=== PATIENT | female | born 1970 | race Caucasian/White ===

== ENCOUNTER → 2016-12-26 | Outpatient (CLI) | payer BC ==
[~2016-12-26] MED LIST: CHOL100010 PO; FLX10 PO; HYDR0.5T PO; LEVE500T26 PO; LIOT1TAB10 PO; LOSA1TAB38 PO; PANT40TA PO; SPIR25TA PO; SYN150 PO; TRAZ100T29 PO; ZCRT/40 PO
--- NOTE | 2016-12-26 14:24 | MAMMOGRAPHY REPORT ---
BILATERAL DIGITAL SCREENING MAMMOGRAM TOMOSYNTHESIS WITH CAD: 12/26/2016 CLINICAL HISTORY: Routine screening. The patient reported to the technologist that she has bilateral breast tenderness for 5 months. TECHNIQUE: Breast tomosynthesis in addition to standard 2D mammography was performed. Current study was also evaluated with a Computer Aided Detection (CAD) system. COMPARISON: Comparison is made to exams dated: 12/26/2015 mammogram, 12/22/2014 mammogram, 08/16/2013 ma mmogram, 07/29/2012 mammogram, 07/15/2011 mammogram, and 11/23/2009 mammogram - [facility] nter. BREAST COMPOSITION: There are scattered areas of fibroglandular density in both breasts. FINDINGS: No suspicious masses, calcifications, or areas of architectural distortion are noted in ei ther breast. There has been no significant interval change compared to prior exams. IMPRESSION: ACR BI-RADS CATEGORY 1: NEGATIVE There is no mammographic evidence of malignancy. A 1 year screening mammogram is recommended. Also r ecommend clinical follow-up for bilateral breast tenderness. The patient will receive written notifi cation of the results. Approximately 10% of breast cancers are not detected with mammography. A negative mammographic report should not delay biopsy if a clinically suggestive mass is present. Elida Amor M.D. ah/:12/26/2016 12:01:05 Pollution Control Engineer: Bharati GARCIA)(David), [facility] letter sent: Normal 1/2 BI-RADS Code: ACR BI-RADS Category 1: Negative
== END | disposition home or self-care (01) ==
LOC: C.MAMM 09:45
PROVIDERS: ATTEND Family Medicine
DX: Z12.31 Encounter for screening mammogram for malignant neoplasm of breast (principal)